=== PATIENT | female | born 1960 | race Caucasian/White ===

== ENCOUNTER 2016-12-14 05:35 | Emergency (ER) | payer SELFPAY ==
[~2016-12-14] VITALS: Ht 160 cm; Wt 75.0 kg
[2016-12-14] MEDS ORDERED: BACL10TA PO (05:45)
[2016-12-14] MEDS ORDERED: ASPI81TA2 PO (05:45)
[2016-12-14] MEDS ORDERED: RANI150T7 PO (05:45)
[2016-12-14] MEDS ORDERED: METF500T4 PO (05:45)
[2016-12-14] MEDS ORDERED: TRAM50TA4 PO (05:45)
[2016-12-14] MEDS ORDERED: LOSA50TA37 PO (05:45)
[2016-12-14] MEDS ORDERED: OMEP20 PO (05:45)
[2016-12-14] MEDS ORDERED: FLUT16H NASAL (05:45)
[2016-12-14] MEDS ORDERED: CETI-260 PO (05:45)
[2016-12-14] MEDS ORDERED: ATOR40TA28 PO (05:45)
[2016-12-14] MEDS ORDERED: ZOLP5 PO (05:45)
[2016-12-14 05:57] LABS: GLUCOSE,POINT OF CARE 113 MG/DL (70-110)
[2016-12-14 06:21] LABS: BASOPHILS # (AUTO) 0.11 K/uL (0.00-0.20); BASOPHILS % (AUTO) 1.3 % (0.0-2.0); EOSINOPHILS # (AUTO) 0.18 K/uL (0.00-0.70); EOSINOPHILS % (AUTO) 2.18 % (1.0-6.0); HEMATOCRIT 40.1 % (36-46); HEMOGLOBIN 13.4 g/dL (12.0-16.0); LYMPHOCYTES # (AUTO) 3.7 K/uL (1.0-4.8); LYMPHOCYTES % (AUTO) 44.6 % (22.0-44.0); MEAN CORPUSCULAR HGB CONC 33.3 G/dL (31.0-37.0); MEAN CORPUSCULAR VOLUME 96 fL (80-100); MONOCYTES # (AUTO) 0.8 K/uL (0.1-1.0); MONOCYTES % (AUTO) 9.2 % (2.0-9.0); NEUTROPHILS # (AUTO) 3.6 K/uL (1.8-7.7); NEUTROPHILS % (AUTO) 42.7 % (40.0-70.0); PLATELET COUNT (AUTO) 281 K/uL (150-450); RED BLOOD CELL COUNT(AUTO) 4.17 MIL/uL (4.00-5.20); RED CELL DISTRIBUTION WIDTH 13.8 % (11.5-14.5); WHITE BLOOD COUNT (AUTO) 8.3 K/uL (4.5-11.0)
[2016-12-14 06:30] LABS: ANION GAP 11 mmol/L (8-16); CALCIUM, TOTAL 7.9 mg/dL (8.8-10.5); CARBON DIOXIDE 25 mmol/L (22-29); CHLORIDE 102 mmol/L (98-107); CREATININE 0.61 mg/dL (0.60-1.30); GLOMERULAR FILTR. RATE CALC > 60 mL/min (>60); POTASSIUM 3.8 mmol/L (3.5-5.1); SODIUM SERUM 138 mmol/L (136-145); UREA NITROGEN, BLOOD 9 mg/dL (7-18)
[2016-12-14 06:45] LABS: ALANINE AMINOTRANSFERASE 133 U/L (12-78); ALBUMIN 3.7 g/dL (3.4-5.0); ASPARTATE AMINOTRANSFERASE 93 U/L (15-37); BILIRUBIN,TOTAL 0.1 mg/dL (0.1-1.0); TOTAL PROTEIN, SERUM 7.1 g/dL (6.4-8.2)
[2016-12-14 06:46] VITALS: BP 100/65
== END 2016-12-14 07:27 | disposition home or self-care (01) ==
LOC: EMS 05:38
DX: T51.0X1A Toxic effect of ethanol, accidental (unintentional), initial encounter (principal); K62.5 Hemorrhage of anus and rectum; M54.5 Low back pain; G89.29 Other chronic pain; E11.9 Type 2 diabetes mellitus without complications; E78.00 Pure hypercholesterolemia, unspecified; F17.210 Nicotine dependence, cigarettes, uncomplicated
CPT/HCPCS: 36415; 80053; 82962; 85025; 99284; G0480

== ENCOUNTER 2025-01-03 17:58 | Inpatient (IN) | payer MEDICARE, MEDICAID ==
[~2025-01-03] VITALS: Ht 160 cm; Wt 66.6 kg
[~2025-01-03 17:58] MED LIST: ASPI81TA39 PO; ATOR40TA28 PO; BACL10TA PO; CETI-450 PO; FLUT16SP NASAL; LOSA-382 PO; METF-1211 PO; OMEP-148 PO; RANI150T7 PO; TRAM50TA5 PO; ZOLP-280 PO
[2025-01-03 19:23] LABS: BASOPHILS % (AUTO) 1.2 % (0.0-2.0); EOSINOPHILS % (AUTO) 0.6 % (1.0-6.0); HEMATOCRIT 35.6 % (36-46); LYMPHOCYTES % (AUTO) 40.6 % (22.0-44.0); MEAN CORPUSCULAR HEMOGLOBIN 31.2 pg (26.0-34.0); MEAN CORPUSCULAR HGB CONC 33.8 G/dL (31.0-37.0); MEAN CORPUSCULAR VOLUME 92 fL (80-100); MONOCYTES # (AUTO) 0.5 K/uL (0.1-1.0); MONOCYTES % (AUTO) 11.4 % (2.0-9.0); NEUTROPHILS # (AUTO) 2.2 K/uL (1.8-7.7); NEUTROPHILS % (AUTO) 46.2 % (40.0-70.0); PLATELET COUNT (AUTO) 238 K/uL (150-450); RED BLOOD CELL COUNT(AUTO) 3.86 MIL/uL (4.00-5.20); RED CELL DISTRIBUTION WIDTH 18.9 % (11.5-14.5); WHITE BLOOD COUNT (AUTO) 4.8 K/uL (4.5-11.0)
[2025-01-03 19:32] LABS: CREATININE 0.94 mg/dL (0.60-1.30)
[2025-01-03 19:33] LABS: CALCIUM, TOTAL 8.7 mg/dL (8.8-10.5)
[2025-01-03 19:38] LABS: POTASSIUM 2.7 mmol/L (3.5-5.1)
[2025-01-03 20:30] LABS: GLUCOMETER DEV NAME(LOC) ER.7; GLUCOSE,POINT OF CARE 118 MG/DL (70-110)
[2025-01-03 20:44] LABS: TROPONIN I-HIGH SENSITIVITY 10 ng/L (<51)
[2025-01-03] MEDS: LORazepam 2 MG TABLET PO ONE (20:53)
[2025-01-03] MEDS: DiphenhydrAMINE HCL 25 MG CAPSULE PO ONE (20:53)
[2025-01-03] MEDS: PERMETHRIN 5% 60 GM CREAM TP ONE (20:53)
[2025-01-03] MEDS ORDERED: ONDANSETRON HCL 4 MG/2 ML VIAL IVP PRN (21:30)
[2025-01-03] MEDS ORDERED: DEXTROSE 50%-WATER 25 GM/50 ML SYRINGE IVP PRN (21:30)
[2025-01-03] MEDS ORDERED: LORazepam 2 MG/ML VIAL IVP PRN ×2 (21:30)
[2025-01-03] MEDS: SODIUM CHLORIDE 3% 500 ML IV ONE (21:58)
[2025-01-03] MEDS: CHLORHEXIDINE GLUCONATE 2% TOWELETTE [2'S/6'S] TP SCH (21:59)
[2025-01-03] MEDS: MAGNESIUM SULFATE 2 GM/WATER 50 ML IV ONE (22:15)
[2025-01-03] MEDS: THIAMINE 100 MG/ML 2 ML VIAL IVP ONE (22:16)
[2025-01-03] MEDS: POTASSIUM CHL 10 MEQ/WATER 50 ML IV PRN (22:48)
[2025-01-04 00:23] LABS: COVID AG,FIA SOURCE NASAL SWAB
[2025-01-04] MEDS: HEPARIN SODIUM,PORCINE 5,000 UNITS/ML VIAL SQ SCH (00:23)
[2025-01-04 00:46] LABS: GLUCOMETER DEV NAME(LOC) ER.7; GLUCOSE,POINT OF CARE 99 MG/DL (70-110)
[2025-01-04 01:22] LABS: SARS-COV2 (COVID) ANTIGEN,FIA Negative (Negative)
[2025-01-04 02:15] LABS: ANION GAP 5 mmol/L (8-16); CALCIUM, TOTAL 8.4 mg/dL (8.8-10.5); CARBON DIOXIDE 30 mmol/L (22-29); CHLORIDE 88 mmol/L (98-107); GLOMERULAR FILTR. RATE CALC > 60 mL/min (>60); GLUCOSE,RANDOM 100 mg/dL (70-110); POTASSIUM 3.1 mmol/L (3.5-5.1); UREA NITROGEN, BLOOD 2 mg/dL (7-18)
[2025-01-04 02:16] LABS: SODIUM SERUM 123 mmol/L (136-145)
[2025-01-04] MEDS: POTASSIUM CHLORIDE 20 MEQ ER TABLET PO PRN (03:41)
[2025-01-04 05:35] LABS: BASOPHILS % (AUTO) 1.2 % (0.0-2.0); EOSINOPHILS % (AUTO) 2.3 % (1.0-6.0); HEMATOCRIT 32.5 % (36-46); HEMOGLOBIN 11.1 g/dL (12.0-16.0); MEAN CORPUSCULAR HEMOGLOBIN 31.5 pg (26.0-34.0); MEAN CORPUSCULAR HGB CONC 34.1 G/dL (31.0-37.0); MEAN CORPUSCULAR VOLUME 93 fL (80-100); MONOCYTES # (AUTO) 0.4 K/uL (0.1-1.0); NEUTROPHILS # (AUTO) 1.4 K/uL (1.8-7.7); NEUTROPHILS % (AUTO) 35.5 % (40.0-70.0); PLATELET COUNT (AUTO) 202 K/uL (150-450); RED BLOOD CELL COUNT(AUTO) 3.52 MIL/uL (4.00-5.20); RED CELL DISTRIBUTION WIDTH 18.4 % (11.5-14.5); WHITE BLOOD COUNT (AUTO) 3.8 K/uL (4.5-11.0)
[2025-01-04 05:41] LABS: ANION GAP 7 mmol/L (8-16); CALCIUM, TOTAL 8.1 mg/dL (8.8-10.5); CARBON DIOXIDE 30 mmol/L (22-29); CHLORIDE 92 mmol/L (98-107); CREATININE 0.61 mg/dL (0.60-1.30); GLOMERULAR FILTR. RATE CALC > 60 mL/min (>60); GLUCOSE,RANDOM 98 mg/dL (70-110); POTASSIUM 3.3 mmol/L (3.5-5.1); SODIUM SERUM 129 mmol/L (136-145); UREA NITROGEN, BLOOD 3 mg/dL (7-18)
[2025-01-04 06:34] LABS: APPEARANCE,URINE HAZY (CLEAR); BILIRUBIN,URINE NEGATIVE (NEGATIVE); COLOR,URINE YELLOW (YELLOW); GLUCOSE, URINE (UA) NEGATIVE (NEGATIVE); KETONES,URINE NEGATIVE (NEGATIVE); LEUKOCYTE ESTERASE ,URINE LARGE (NEGATIVE); NITRATE,URINE NEGATIVE (NEGATIVE); OCCULT BLOOD,URINE NEGATIVE (NEGATIVE); PH,URINE 5.5 (5.0-8.0); PH,URINE DRUG SCREEN 5.5 (5.0-8.0); PROTEIN,URINE NEGATIVE (NEGATIVE); SPECIFIC GRAVITIY, URINE 1.006 (1.003-1.030); UROBILINOGEN,URINE <=1.0 mg/dL (<=1.0)
[2025-01-04] MEDS: POTASSIUM CHLORIDE 10 MEQ ER TABLET PO ONE (06:38)
[2025-01-04] MEDS: DEXTROSE 5%-WATER 250 ML IV ONE (06:38)
[2025-01-04 06:40] LABS: ALCOHOL, URINE DRUG SCREEN NEGATIVE (NEGATIVE); AMPHET/METH SCREEN,URINE NEGATIVE (NEGATIVE); BARBITURATE SCREEN, URINE NEGATIVE (NEGATIVE); BENZODIAZEPINES SCREEN,URINE NEGATIVE (NEGATIVE); CANNABINOID SCREEN,URINE NEGATIVE (NEGATIVE); COCAINE SCREEN,URINE NEGATIVE (NEGATIVE); METHADONE SCREEN, URINE NEGATIVE (NEGATIVE); OPIATE SCREEN,URINE NEGATIVE (NEGATIVE); PHENCYCLIDINE SCREEN,URINE NEGATIVE (NEGATIVE)
[2025-01-04 06:44] LABS: BACTERIA,URINE Many /HPF (None Seen); RBC,URINE 0-2 /HPF (0-2)
[2025-01-04 06:45] LABS: SQUAMOUS EPITHELIAL CELL,UR Moderate /LPF (None Seen)
[2025-01-04] MEDS: PERMETHRIN 5% 60 GM CREAM TP ONE (07:29)
[2025-01-04] MEDS: CefTRIAXone 1 GM/DEXTROSE 50 ML IV SCH (08:05)
[2025-01-04] MEDS: DOCUSATE SODIUM 100 MG CAPSULE PO SCH (08:05)
[2025-01-04 09:11] LABS: GLUCOMETER DEV NAME(LOC) ER.7; GLUCOSE,POINT OF CARE 116 MG/DL (70-110)
[2025-01-04 10:31] VITALS: BP 96/69; PULSE 96; RESP 18; TEMP 98.6; O2SAT 99
[2025-01-04] MEDS ORDERED: PARO40TA72 PO (11:55)
[2025-01-04] MEDS ORDERED: AMLO5TAB66 PO (12:00)
[2025-01-04] MEDS ORDERED: EZET10TA57 PO (12:00)
[2025-01-04] MEDS ORDERED: GABA-1181 PO (12:00)
[2025-01-04] MEDS ORDERED: PROP20TA96 PO (12:00)
[2025-01-04] MEDS: PARoxetine HCL 20 MG TABLET PO SCH (13:01)
[2025-01-04] MEDS: HYDROmorphone HCL 2 MG/ML SYRINGE IVP PRN (14:10)
[2025-01-04 15:16] VITALS: BP 118/72; PULSE 97; RESP 18; TEMP 98.2; O2SAT 97
[2025-01-04 15:27] LABS: ANION GAP 7 mmol/L (8-16); CALCIUM, TOTAL 7.8 mg/dL (8.8-10.5); CARBON DIOXIDE 28 mmol/L (22-29); CHLORIDE 92 mmol/L (98-107); CREATININE 0.59 mg/dL (0.60-1.30); GLOMERULAR FILTR. RATE CALC > 60 mL/min (>60); GLUCOSE,RANDOM 94 mg/dL (70-110); POTASSIUM 4.7 mmol/L (3.5-5.1); SODIUM SERUM 127 mmol/L (136-145); UREA NITROGEN, BLOOD 4 mg/dL (7-18)
[2025-01-04] MEDS: SODIUM CHLORIDE 1 GM TABLET PO SCH (16:26)
[2025-01-04] MEDS: ACETAMINOPHEN 325 MG TABLET PO PRN (16:45)
[2025-01-04 17:20] LABS: GLUCOMETER DEV NAME(LOC) 5S.2D; GLUCOSE,POINT OF CARE 107 MG/DL (70-110)
[2025-01-04 19:24] VITALS: BP 102/64; PULSE 89; RESP 18; TEMP 97.5; O2SAT 97
[2025-01-04] MEDS: LORazepam 2 MG/ML VIAL IVP PRN (20:13)
[2025-01-04 22:25] LABS: GLUCOMETER DEV NAME(LOC) 5S.1D; GLUCOSE,POINT OF CARE 124 MG/DL (70-110)
[2025-01-04 23:17] VITALS: BP 133/77; PULSE 91; RESP 18; TEMP 97.7; O2SAT 98
[2025-01-05 06:00] VITALS: BP 90/76; PULSE 92; RESP 17; TEMP 98.4; O2SAT 100
[2025-01-05 06:21] LABS: GLUCOMETER DEV NAME(LOC) 5S.2D; GLUCOSE,POINT OF CARE 132 MG/DL (70-110)
[2025-01-05 06:21] LABS: GLUCOMETER DEV NAME(LOC) 5S.2D; GLUCOSE,POINT OF CARE 98 MG/DL (70-110)
[2025-01-05 06:45] LABS: ANION GAP 6 mmol/L (8-16); CALCIUM, TOTAL 7.9 mg/dL (8.8-10.5); CARBON DIOXIDE 28 mmol/L (22-29); CHLORIDE 97 mmol/L (98-107); CREATININE 0.61 mg/dL (0.60-1.30); GLOMERULAR FILTR. RATE CALC > 60 mL/min (>60); GLUCOSE,RANDOM 98 mg/dL (70-110); SODIUM SERUM 130 mmol/L (136-145); UREA NITROGEN, BLOOD 5 mg/dL (7-18)
[2025-01-05] MEDS ORDERED: SODIUM CHLORIDE 0.9% 250 ML IV ONE (07:45)
[2025-01-05 08:46] VITALS: BP 106/68; PULSE 92; RESP 18; TEMP 97.8; O2SAT 99
[2025-01-05 11:33] VITALS: BP 113/78; PULSE 90; RESP 18; TEMP 97.4; O2SAT 97
[2025-01-05] MEDS: INSULIN LISPRO 100 UNITS/ML SQ PRN (11:41)
[2025-01-05 11:51] LABS: GLUCOMETER DEV NAME(LOC) 5N.1D; GLUCOSE,POINT OF CARE 157 MG/DL (70-110)
[2025-01-05 15:28] VITALS: BP 112/79; PULSE 89; RESP 19; TEMP 98.2; O2SAT 97
[2025-01-05 18:10] LABS: GLUCOMETER DEV NAME(LOC) 5N.1D; GLUCOSE,POINT OF CARE 118 MG/DL (70-110)
[2025-01-05 19:47] VITALS: BP 103/62; PULSE 95; RESP 18; TEMP 98.6; O2SAT 98
[2025-01-06 01:03] VITALS: BP 145/92; PULSE 90; RESP 18; TEMP 98.2; O2SAT 97
[2025-01-06 01:50] LABS: GLUCOMETER DEV NAME(LOC) 5S.2D; GLUCOSE,POINT OF CARE 135 MG/DL (70-110)
[2025-01-06 04:26] VITALS: BP 130/80; PULSE 88; RESP 18; TEMP 97.5; O2SAT 97
[2025-01-06 08:01] VITALS: BP 111/71; PULSE 84; RESP 18; TEMP 98.6; O2SAT 98
[2025-01-06 08:48] LABS: ANION GAP 4 mmol/L (8-16); CALCIUM, TOTAL 8.2 mg/dL (8.8-10.5); CARBON DIOXIDE 30 mmol/L (22-29); CHLORIDE 99 mmol/L (98-107); GLOMERULAR FILTR. RATE CALC > 60 mL/min (>60); GLUCOSE,RANDOM 91 mg/dL (70-110); POTASSIUM 3.9 mmol/L (3.5-5.1); SODIUM SERUM 133 mmol/L (136-145); UREA NITROGEN, BLOOD 4 mg/dL (7-18)
[2025-01-06 10:01] LABS: GLUCOMETER DEV NAME(LOC) 5S.2D; GLUCOSE,POINT OF CARE 98 MG/DL (70-110)
[2025-01-06 11:52] VITALS: BP 135/90; PULSE 100; RESP 18; TEMP 98.5; O2SAT 98
[2025-01-06 16:00] VITALS: BP 156/90; PULSE 101; RESP 18; TEMP 98.5; O2SAT 98
[2025-01-06] MEDS: AmLODIPine BESYLATE 5 MG TABLET PO SCH (16:19)
[2025-01-06 17:20] LABS: COVID AG,FIA SOURCE NASAL SWAB
[2025-01-06 17:44] LABS: SARS-COV2 (COVID) ANTIGEN,FIA Negative (Negative)
[2025-01-06 18:25] LABS: GLUCOMETER DEV NAME(LOC) 5N.1D; GLUCOSE,POINT OF CARE 132 MG/DL (70-110)
[2025-01-06 18:40] LABS: GLUCOMETER DEV NAME(LOC) 5S.2D; GLUCOSE,POINT OF CARE 104 MG/DL (70-110)
[2025-01-06] MEDS ORDERED: CEPH-558 PO (19:01)
[2025-01-06 19:42] VITALS: BP 132/75; PULSE 97; RESP 18; TEMP 98.2; O2SAT 97
[2025-01-06 21:35] LABS: GLUCOMETER DEV NAME(LOC) 5S.2D; GLUCOSE,POINT OF CARE 173 MG/DL (70-110)
== END 2025-01-06 22:45 | DRG 640 ==
LOC: EMS 17:59 → EDH 21:26 → 5N 01-04 10:25
PROVIDERS: ADMIT Internal Medicine; ATTEND Internal Medicine
DX: E87.1 Hypo-osmolality and hyponatremia (principal); G93.41 Metabolic encephalopathy; F10.939 Alcohol use, unspecified with withdrawal, unspecified; F33.2 Major depressive disorder, recurrent severe without psychotic features; E11.9 Type 2 diabetes mellitus without complications; M79.7 Fibromyalgia; E83.42 Hypomagnesemia; E87.6 Hypokalemia; F17.210 Nicotine dependence, cigarettes, uncomplicated; B85.1 Pediculosis due to Pediculus humanus corporis; E78.00 Pure hypercholesterolemia, unspecified; Z20.822 Contact with and (suspected) exposure to COVID-19; Z79.899 Other long term (current) drug therapy
CPT/HCPCS: 80048; 80307; 81001; 82962; 83735; 83930; 83935; 84300; 84484; 85025; 87077; 87086; 87186; 93005; 99291; G0480; J0696; J1171; J1644; J2060; J3411; J3475; J3480; J7030; J7050; J7060

== ENCOUNTER 2025-01-06 16:02 | Inpatient (IN) | payer MEDICARE, MEDICAID ==
[~2025-01-06] VITALS: Ht 160 cm; Wt 67.1 kg
[~2025-01-06 16:02] MED LIST changes: +AMLO5TAB66 PO; -ATOR40TA28 PO; -BACL10TA PO; +EZET10TA57 PO; +GABA-1181 PO; +PARO40TA72 PO; +PROP20TA96 PO; -RANI150T7 PO; -TRAM50TA5 PO; -ZOLP-280 PO
[2025-01-06] MEDS ORDERED: haloperidoL 5 MG TABLET PO PRN (16:15)
[2025-01-06] MEDS ORDERED: ZOLPIDEM TARTRATE 10 MG TABLET PO PRN (16:15)
[2025-01-06] MEDS ORDERED: CEPH-558 PO (19:01)
[2025-01-07 00:04] VITALS: BP 126/76; PULSE 90; RESP 18; TEMP 97.6; O2SAT 98
[2025-01-07 00:40] VITALS: BP 126/76; PULSE 90; RESP 18; O2SAT 98
[2025-01-07 09:11] VITALS: BP 95/62; PULSE 88; RESP 16; TEMP 98; O2SAT 98
[2025-01-07] MEDS: PARoxetine HCL 20 MG TABLET PO SCH (09:18)
[2025-01-07] MEDS: ASPIRIN 81 MG CHEWABLE TABLET PO SCH (13:03)
[2025-01-07] MEDS ORDERED: FLUoxetine HCL 20 MG CAPSULE PO SCH (13:15)
[2025-01-07] MEDS: EZETIMIBE 10 MG TABLET PO SCH (13:52)
[2025-01-07] MEDS: CETIRIZINE HCL 10 MG TABLET PO SCH (13:53)
[2025-01-07 14:36] VITALS: BP 100/62
[2025-01-07] MEDS: LORazepam 2 MG TABLET PO PRN (14:37)
[2025-01-07] MEDS: MetFORMIN HCL 500 MG TABLET PO SCH (17:05)
[2025-01-07] MEDS ORDERED: ALBUTEROL SULFATE HFA 90 MCG/PUFF 8 GM INHALER IH PRN (19:45)
[2025-01-07] MEDS ORDERED: PETROLATUM,WHITE 28 GM JELLY TP PRN (19:45)
[2025-01-07] MEDS ORDERED: BACITRACIN 28 GM OINTMENT TP PRN (19:45)
[2025-01-07] MEDS ORDERED: MAGNESIUM HYDROXIDE SUSPENSION 30 ML UDCUP PO PRN (19:45)
[2025-01-07] MEDS ORDERED: GLUCAGON,HUMAN RECOMBINANT 1 MG VIAL IM PRN (19:45)
[2025-01-07] MEDS ORDERED: MAG HYDROX/ALUMINUM HYD/SIMETH ES 30 ML SUSPENSION UDCUP PO PRN (19:45)
[2025-01-07] MEDS ORDERED: CloNIDine HCL 0.1 MG TABLET PO PRN (19:45)
[2025-01-07] MEDS ORDERED: DOCUSATE SODIUM 100 MG CAPSULE PO PRN (19:45)
[2025-01-07 21:05] VITALS: RESP 16
[2025-01-07] MEDS: CEPHALEXIN MONOHYDRATE 500 MG CAPSULE PO SCH (22:03)
[2025-01-08 08:05] VITALS: BP 113/78; PULSE 95; RESP 18; TEMP 97.6; O2SAT 98
[2025-01-08] MEDS: SODIUM CHLORIDE 1 GM TABLET PO SCH (08:49)
[2025-01-08] MEDS: OMEPRAZOLE 20 MG CAPSULE PO SCH (08:49)
[2025-01-08] MEDS: AmLODIPine BESYLATE 5 MG TABLET PO SCH (08:50)
[2025-01-08] MEDS: FLUTICASONE PROPIONATE 50 MCG/SPRAY 16 GM NASAL SPRAY NASAL SCH (10:02)
[2025-01-08 10:40] VITALS: RESP 18
[2025-01-08] MEDS: IBUPROFEN 600 MG TABLET PO PRN (10:40)
[2025-01-08] MEDS: INSULIN LISPRO 100 UNITS/ML SQ PRN (11:38)
[2025-01-08 11:40] VITALS: RESP 17
[2025-01-08 18:14] VITALS: RESP 17
[2025-01-08 19:14] VITALS: RESP 16
[2025-01-08 20:03] VITALS: BP 134/71; PULSE 94; RESP 18; TEMP 98.1
[2025-01-09 08:54] VITALS: BP 97/68; PULSE 98; RESP 17; TEMP 98.2; O2SAT 100
[2025-01-09 09:13] LABS: BASOPHILS % (AUTO) 0.6 % (0.0-2.0); EOSINOPHILS % (AUTO) 2.1 % (1.0-6.0); HEMATOCRIT 32.1 % (36-46); HEMOGLOBIN 10.6 g/dL (12.0-16.0); LYMPHOCYTES # (AUTO) 1.8 K/uL (1.0-4.8); LYMPHOCYTES % (AUTO) 34.4 % (22.0-44.0); MEAN CORPUSCULAR HEMOGLOBIN 31.2 pg (26.0-34.0); MEAN CORPUSCULAR VOLUME 95 fL (80-100); MONOCYTES # (AUTO) 0.6 K/uL (0.1-1.0); MONOCYTES % (AUTO) 12.2 % (2.0-9.0); NEUTROPHILS # (AUTO) 2.6 K/uL (1.8-7.7); NEUTROPHILS % (AUTO) 50.7 % (40.0-70.0); PLATELET COUNT (AUTO) 233 K/uL (150-450); RED BLOOD CELL COUNT(AUTO) 3.39 MIL/uL (4.00-5.20); RED CELL DISTRIBUTION WIDTH 19.6 % (11.5-14.5); WHITE BLOOD COUNT (AUTO) 5.1 K/uL (4.5-11.0)
[2025-01-09 09:24] LABS: HEMOGLOBIN A1C 5.4 % (3.8-5.6)
[2025-01-09 09:44] LABS: ALANINE AMINOTRANSFERASE 32 U/L (12-78); ALBUMIN 2.6 g/dL (3.4-5.0); ALKALINE PHOSPHATASE 84 U/L (46-116); ANION GAP 4 mmol/L (8-16); ASPARTATE AMINOTRANSFERASE 28 U/L (15-37); BILIRUBIN,TOTAL 0.3 mg/dL (0.1-1.0); CARBON DIOXIDE 29 mmol/L (22-29); CHLORIDE 105 mmol/L (98-107); CHOL/HDL RATIO 3.1 (3.9-5.7); CHOLESTEROL 174 mg/dL (131-200); CREATININE 0.51 mg/dL (0.60-1.30); GLOMERULAR FILTR. RATE CALC > 60 mL/min (>60); GLUCOSE,RANDOM 103 mg/dL (70-110); HDL CHOLESTEROL 57 mg/dL (40-60); LDL CHOL (CALC.) 94 mg/dL (0-130); PHOSPHORUS 4.8 mg/dL (2.5-4.9); POTASSIUM 4.7 mmol/L (3.5-5.1); SODIUM SERUM 138 mmol/L (136-145); THYROID STIMULATING HORMONE 2.18 uIU/mL (0.36-3.74); TOTAL PROTEIN, SERUM 5.7 g/dL (6.4-8.2); TRIGLYCERIDES 117 mg/dL (15-150); UREA NITROGEN, BLOOD 5 mg/dL (7-18)
[2025-01-09 10:10] VITALS: BP 107/71
[2025-01-09 11:41] LABS: GLUCOMETER DEV NAME(LOC) BV2S.; GLUCOSE,POINT OF CARE 134 MG/DL (70-110)
[2025-01-09 14:04] VITALS: RESP 17; O2SAT 100
[2025-01-09 15:04] VITALS: RESP 17
[2025-01-09 20:33] VITALS: BP 111/72; PULSE 97; RESP 17; TEMP 97.7; O2SAT 100
[2025-01-09] MEDS: GABAPENTIN 300 MG CAPSULE PO SCH (21:18)
[2025-01-09 21:27] VITALS: BP 132/80; RESP 18; O2SAT 100
[2025-01-10 03:07] LABS: HEPATITIS A ANTIBODY IGM Negative (Negative); HEPATITIS B CORE IGM Negative (Negative); HEPATITIS C AB (EIA) Non Reactive (Non Reactive)
[2025-01-10] MEDS: PERMETHRIN 5% 60 GM CREAM TP ONE ×2 (08:15→21:51)
[2025-01-10 11:26] LABS: GLUCOMETER DEV NAME(LOC) BV2S.; GLUCOSE,POINT OF CARE 114 MG/DL (70-110)
[2025-01-10 13:32] VITALS: RESP 18
[2025-01-10] MEDS: ACETAMINOPHEN 325 MG TABLET PO PRN (13:32)
[2025-01-10] MEDS: BENZOCAINE/MENTHOL [CEPACOL] LOZENGE PO PRN (14:09)
[2025-01-10 14:32] VITALS: RESP 18
[2025-01-10 14:40] VITALS: BP 95/67; PULSE 93; RESP 18; TEMP 97.7; O2SAT 100
[2025-01-10 20:17] VITALS: BP 129/70; PULSE 93; RESP 17; TEMP 98.2; O2SAT 98
[2025-01-10 22:39] VITALS: BP 129/70; PULSE 93; RESP 17; TEMP 98.1; O2SAT 97
[2025-01-11 08:07] VITALS: BP 117/71; PULSE 94; RESP 18; TEMP 98.1; O2SAT 100
[2025-01-11 12:31] LABS: GLUCOMETER DEV NAME(LOC) BV2S.; GLUCOSE,POINT OF CARE 84 MG/DL (70-110)
[2025-01-11] MEDS: ONDANSETRON 4 MG TABLET PO PRN (16:20)
[2025-01-11 18:00] LABS: GLUCOMETER DEV NAME(LOC) BV2S.; GLUCOSE,POINT OF CARE 120 MG/DL (70-110)
[2025-01-11 20:13] VITALS: BP 118/63; PULSE 91; RESP 17; TEMP 97.5; O2SAT 98
[2025-01-12 08:20] VITALS: BP 112/60; PULSE 90; RESP 18; TEMP 97.8; O2SAT 100
[2025-01-12] MEDS: DICLOFENAC SODIUM 1% 100 GM GEL [2GM] TP SCH (09:00)
[2025-01-12 12:05] LABS: GLUCOMETER DEV NAME(LOC) BV2S.; GLUCOSE,POINT OF CARE 205 MG/DL (70-110)
[2025-01-12 17:55] LABS: GLUCOMETER DEV NAME(LOC) BV2S.; GLUCOSE,POINT OF CARE 131 MG/DL (70-110)
[2025-01-12 21:55] LABS: GLUCOMETER DEV NAME(LOC) BV2S.; GLUCOSE,POINT OF CARE 115 MG/DL (70-110)
[2025-01-12 22:00] VITALS: BP 92/77; PULSE 96; RESP 18; TEMP 98.1; O2SAT 98
[2025-01-13 06:10] VITALS: BP 135/69; PULSE 88
[2025-01-13 08:34] LABS: BASOPHILS % (AUTO) 0.6 % (0.0-2.0); EOSINOPHILS % (AUTO) 0.8 % (1.0-6.0); HEMATOCRIT 30.5 % (36-46); HEMOGLOBIN 10.1 g/dL (12.0-16.0); LYMPHOCYTES # (AUTO) 1.9 K/uL (1.0-4.8); LYMPHOCYTES % (AUTO) 25.9 % (22.0-44.0); MEAN CORPUSCULAR HEMOGLOBIN 30.9 pg (26.0-34.0); MEAN CORPUSCULAR HGB CONC 32.9 G/dL (31.0-37.0); MEAN CORPUSCULAR VOLUME 94 fL (80-100); MONOCYTES # (AUTO) 0.6 K/uL (0.1-1.0); MONOCYTES % (AUTO) 8.6 % (2.0-9.0); NEUTROPHILS # (AUTO) 4.7 K/uL (1.8-7.7); NEUTROPHILS % (AUTO) 64.1 % (40.0-70.0); PLATELET COUNT (AUTO) 313 K/uL (150-450); RED BLOOD CELL COUNT(AUTO) 3.25 MIL/uL (4.00-5.20); RED CELL DISTRIBUTION WIDTH 18.8 % (11.5-14.5); WHITE BLOOD COUNT (AUTO) 7.4 K/uL (4.5-11.0)
[2025-01-13 08:55] LABS: ALANINE AMINOTRANSFERASE 32 U/L (12-78); ALBUMIN 2.5 g/dL (3.4-5.0); ALKALINE PHOSPHATASE 72 U/L (46-116); ANION GAP 6 mmol/L (8-16); ASPARTATE AMINOTRANSFERASE 29 U/L (15-37); BILIRUBIN,TOTAL 0.3 mg/dL (0.1-1.0); CALCIUM, TOTAL 9.1 mg/dL (8.8-10.5); CARBON DIOXIDE 29 mmol/L (22-29); CHLORIDE 104 mmol/L (98-107); CREATININE 0.51 mg/dL (0.60-1.30); GLOMERULAR FILTR. RATE CALC > 60 mL/min (>60); GLUCOSE,RANDOM 105 mg/dL (70-110); PHOSPHORUS 4.8 mg/dL (2.5-4.9); POTASSIUM 4.2 mmol/L (3.5-5.1); SODIUM SERUM 139 mmol/L (136-145); TOTAL PROTEIN, SERUM 5.9 g/dL (6.4-8.2); UREA NITROGEN, BLOOD 7 mg/dL (7-18)
[2025-01-13 08:57] VITALS: BP 95/72; PULSE 97; RESP 18; TEMP 98.2; O2SAT 100
[2025-01-13 11:31] LABS: GLUCOMETER DEV NAME(LOC) BV2S.; GLUCOSE,POINT OF CARE 120 MG/DL (70-110)
[2025-01-13 17:30] LABS: GLUCOMETER DEV NAME(LOC) BV2S.; GLUCOSE,POINT OF CARE 142 MG/DL (70-110)
[2025-01-13] MEDS: LOPERAMIDE HCL 2 MG CAPSULE PO PRN (20:07)
[2025-01-13 21:06] VITALS: BP 129/63; PULSE 97; RESP 18; TEMP 98; O2SAT 97
[2025-01-14 09:42] VITALS: BP 106/80; PULSE 92; RESP 17; TEMP 98.1; O2SAT 98
[2025-01-14 21:05] VITALS: BP 95/75; PULSE 95; RESP 17; TEMP 98.2; O2SAT 100
[2025-01-14 22:37] VITALS: BP 120/66; PULSE 86
[2025-01-15 08:03] VITALS: BP 115/65; PULSE 97; RESP 18; TEMP 97.8; O2SAT 98
[2025-01-15 13:01] VITALS: BP 114/62; PULSE 96; RESP 18; TEMP 98.3; O2SAT 98
[2025-01-15 14:01] VITALS: RESP 18
[2025-01-15] MEDS: GABAPENTIN 300 MG CAPSULE PO SCH (17:53)
[2025-01-15 20:06] VITALS: BP 104/81; PULSE 94; RESP 16; TEMP 98.2; O2SAT 98
[2025-01-15 21:36] LABS: GLUCOMETER DEV NAME(LOC) BV2S.; GLUCOSE,POINT OF CARE 183 MG/DL (70-110)
[2025-01-16 06:20] LABS: GLUCOMETER DEV NAME(LOC) BV2S.; GLUCOSE,POINT OF CARE 124 MG/DL (70-110)
[2025-01-16 08:24] VITALS: BP 110/73; PULSE 94; RESP 16; TEMP 97.5; O2SAT 99
[2025-01-16 11:36] LABS: GLUCOMETER DEV NAME(LOC) BV2S.; GLUCOSE,POINT OF CARE 108 MG/DL (70-110)
[2025-01-16] MEDS ORDERED: AMLO-257 PO (13:35)
[2025-01-16] MEDS ORDERED: PARO-37 PO (13:35)
[2025-01-16] MEDS ORDERED: OMEP20CA12 PO (13:35)
[2025-01-16] MEDS ORDERED: METF-1211 PO (13:35)
[2025-01-16] MEDS ORDERED: GABA-1181 PO (13:35)
[2025-01-16] MEDS ORDERED: ASPI-1450 PO (13:35)
[2025-01-16] MEDS ORDERED: CETI-450 PO (13:35)
[2025-01-16] MEDS ORDERED: EZET10TA57 PO (13:35)
== END 2025-01-16 15:50 | disposition home or self-care (01) | DRG 885 ==
LOC: B2S 20:18
PROVIDERS: ADMIT Psychiatry & Neurology Psychiatry; ATTEND Psychiatry & Neurology Psychiatry
PROC: GZHZZZZ Group Psychotherapy (ICD-10-PCS; principal; 2025-01-07)
PROC: GZ52ZZZ Individual Psychotherapy, Cognitive (ICD-10-PCS; 2025-01-07)
PROC: GZ56ZZZ Individual Psychotherapy, Supportive (ICD-10-PCS; 2025-01-07)
DX: F33.2 Major depressive disorder, recurrent severe without psychotic features (principal); E87.1 Hypo-osmolality and hyponatremia; F03.918 Unspecified dementia, unspecified severity, with other behavioral disturbance; F03.93 Unspecified dementia, unspecified severity, with mood disturbance; F03.94 Unspecified dementia, unspecified severity, with anxiety; N39.0 Urinary tract infection, site not specified; E11.9 Type 2 diabetes mellitus without complications; E78.5 Hyperlipidemia, unspecified; G47.00 Insomnia, unspecified; I10 Essential (primary) hypertension; K21.9 Gastro-esophageal reflux disease without esophagitis; M79.7 Fibromyalgia; B85.2 Pediculosis, unspecified; B86 Scabies; Z79.899 Other long term (current) drug therapy; R74.01 Elevation of levels of liver transaminase levels; L30.9 Dermatitis, unspecified; F10.90 Alcohol use, unspecified, uncomplicated
CPT/HCPCS: 80053; 80061; 80074; 82962; 83036; 83735; 84100; 84300; 84443; 85025; 87081; Q0162

== ENCOUNTER 2025-01-24 13:20 | Emergency (ER) | payer MEDICARE, MEDICAID ==
[~2025-01-24] VITALS: Ht 160 cm; Wt 72.7 kg
[~2025-01-24 13:20] MED LIST changes: +AMLO-257 PO; -AMLO5TAB66 PO; +ASPI-1450 PO; -ASPI81TA39 PO; +CETI-432 PO; -CETI-450 PO; -FLUT16SP NASAL; -LOSA-382 PO; -OMEP-148 PO; +OMEP20CA12 PO; +PARO-37 PO; -PARO40TA72 PO; -PROP20TA96 PO
[2025-01-24 13:30] VITALS: BP 137/76; PULSE 85; RESP 18; TEMP 99; O2SAT 98
[2025-01-24 14:00] LABS: PLATELET COUNT (AUTO) 367 K/uL (150-450); RED BLOOD CELL COUNT(AUTO) 3.29 MIL/uL (4.00-5.20); RED CELL DISTRIBUTION WIDTH 18.4 % (11.5-14.5); WHITE BLOOD COUNT (AUTO) 4.9 K/uL (4.5-11.0)
[2025-01-24 14:13] LABS: CALCIUM, TOTAL 8.7 mg/dL (8.8-10.5); CREATININE 0.68 mg/dL (0.60-1.30); GLOMERULAR FILTR. RATE CALC > 60 mL/min (>60); GLUCOSE,RANDOM 111 mg/dL (70-110); SODIUM SERUM 132 mmol/L (136-145); UREA NITROGEN, BLOOD 6 mg/dL (7-18)
== END 2025-01-24 14:19 | disposition left against medical advice (07) ==
LOC: EMS 13:23
DX: R51.9 Headache, unspecified (principal); R19.7 Diarrhea, unspecified; Z53.21 Procedure and treatment not carried out due to patient leaving prior to being seen by health care provider
CPT/HCPCS: 80048; 85025